=== PATIENT | male | born 1980 | race African-American/Black ===

== ENCOUNTER 2017-01-28 18:15 | Emergency (ER) | payer BC ==
[~2017-01-28] VITALS: Ht 177.8 cm; Wt 59.0 kg
[2017-01-28 18:51] VITALS: BP 96/64
[2017-01-28] MEDS ORDERED: NEOMY/BACITR/POLYMYXIN OINT PACKET. TP ONE (19:30)
[2017-01-28 19:52] LABS: POTASSIUM ISTAT 4.1 mmol/L (3.5-5.0)
--- NOTE | 2017-01-28 20:06 | PHYS DOC ---
Past Medical History Past Medical History: Arthritis, Sickle Cell Disease Past Surgical History: No Surgical History Alcohol Use: None Drug Use: None Adult General Chief Complaint Chief Complaint: KNEE INJURY HPI HPI Patient is a 36 year old male with history of sickle cell disease, Hep B and treated who presents today complaining of left knee pain. Patient states he was bending down when he got dizzy and fell on his left knee landing on a light bulb that broke. Patient denies any loss of consciousness. Denies hitting his head on the ground. Review of Systems Review of Systems Constitutional: Denies fever or chills [] Eyes: Denies change in visual acuity, redness, or eye pain [] HENT: Denies nasal congestion or sore throat [] Respiratory: Denies cough or shortness of breath [] Cardiovascular: No additional information not addressed in HPI [] GI: Denies abdominal pain, nausea, vomiting, bloody stools or diarrhea [] : Denies dysuria or hematuria [] Musculoskeletal: left knee pain Integument: Denies rash or skin lesions [] Neurologic: Dizziness. Denies headache, focal weakness or sensory changes [] Endocrine: Denies polyuria or polydipsia [] All other systems were reviewed and found to be within normal limits, except as documented in this note. Current Medications Current Medications Current Medications Medications (Trade) Dose Ordered Sig/Ira Start Time Stop Time Status Last Admin Dose Admin Neomycin/ Polymyxin/ Bacitracin (Triple Antibiotic Ointment) 1 pkt 1X ONCE 01/28/17 19:30 01/28/17 19:31 DC 01/28/17 19:30 1 PKT Allergies Allergies Allergies Coded Allergies Type Severity Reaction Last Updated Verified No Known Drug Allergies 03/08/13 No Physical Exam Physical Exam Constitutional: Well developed, well nourished, no acute distress, non-toxic appearance. [] HENT: Normocephalic, atraumatic, bilateral external ears normal, oropharynx moist, no oral exudates, nose normal. [] Eyes: PERRLA, EOMI, conjunctiva normal, no discharge. [] Neck: Normal range of motion, no tenderness, supple, no stridor. [] Cardiovascular:Heart rate regular rhythm, no murmur [] Lungs & Thorax: Bilateral breath sounds clear to auscultation [] Abdomen: Bowel sounds normal, soft, no tenderness, no masses, no pulsatile masses. [] Skin: Warm, dry, no erythema, no rash. [] Back: No tenderness, no CVA tenderness. [] Extremities: Left anterior knee with bruising. No obvious deformity. No tenderness. Full range of motion to the left knee including flexion and extension of the knee. Negative Kajal sign and negative Darya's sign. +2 left pedal pulse. Cap refill less than 2 seconds the left toes. Neurologic: Alert and oriented X 3, normal motor function, normal sensory function, no focal deficits noted. Cranial nerves II through XII intact. Psychologic: Affect normal, judgement normal, mood normal. [] Current Patient Data Vital Signs Vital Signs Date Time Temp Pulse Resp B/P (MAP) Pulse Ox O2 Delivery O2 Flow Rate FiO2 01/28/17 18:51 98.0 71 16 98 Room Air 98.0 Lab Values Laboratory Tests Test 01/28/17 19:39 POC Hemoglobin 13.3 g/dL (14-18) L POC Hematocrit 39 % (37-52) POC Sodium 138 mmol/L (135-145) POC Potassium 4.1 mmol/L (3.5-5.0) POC Chloride 103 mmol/L (98-110) POC Total CO2 24 mmol/L (23-32) Anion Gap 16 mmol/L (6-14) H POC Blood Urea Nitrogen 9 mg/dL (8-26) POC Creatinine 0.9 mg/dL (0.5-1.4) Glucose Level 96 mg/dL (70-99) POC Ionized Calcium (Katie) 1.09 mmol/L (1.13-1.32) L Laboratory Tests 01/28/17 19:39 EKG EKG [] Radiology/Procedures Radiology/Procedures [] Course & Med Decision Making Course & Med Decision Making Pertinent Labs and Imaging studies reviewed. (See chart for details) Patient is in the ED with left knee pain that began after he got dizzy and fell down. Chem 8 with no acute findings. Left knee x-rays interpreted by Dr. Chavira were negative for any acute findings but suspicious of a foreign object. Informed patient the foreign object to make its way out. Tetanus is up-to-date. Neosporin recommended to the area. Ice elevation encouraged. Follow-up with PCP in one week if pain continues or symptoms persist. Dragon Disclaimer Dragon Disclaimer This electronic medical record was generated, in whole or in part, using a voice recognition dictation system. Departure Departure Impression: Primary Impression: Left knee sprain Additional Impressions: Contusion of left knee Fall from standing Dizziness Disposition: 01 HOME, SELF-CARE Condition: STABLE Referrals: DARYL RAGLAND (PCP) follow up with your doctor in one week Patient Instructions: Contusion, Dizziness, [id number], Knee Sprain, Easy-to- Read Additional Instructions: You were seen for left knee pain after falling. Your lab work was negative for any acute findings. We encourage you to change positions very slowly. We encourage you to keep the affected knee clean and dry. There is a possibility you could have a foreign object/piece of light bulb in the knee. Most foreign objects will make their way out. Just monitor the area to make sure it does not get infected, signs of infection include increased redness to the area, yellow drainage from the area, increased warmth to the area if they occur, see your doctor right away. Problem Qualifiers Primary Impression: Left knee sprain Encounter type: initial encounter Involved ligament of knee: unspecified ligament Qualified Codes: S83.92XA - Sprain of unspecified site of left knee, initial encounter Additional Impressions: Contusion of left knee Encounter type: initial encounter Qualified Codes: S80.02XA - Contusion of left knee, initial encounter Fall from standing Encounter type: initial encounter Qualified Codes: W19.XXXA - Unspecified fall, initial encounter JEAN-CLAUDE GOMEZ APRN Jan 28, 2017 20:06
--- NOTE | 2017-01-29 08:26 | RAD ---
Left knee with patella, 4 views, 01/28/2017: History: Fall. No fracture or dislocation is identified. No significant joint effusion is seen. There is a tiny 1-2 mm radiopacity projected over the superficial soft tissues in the infrapatellar region on the lateral view. The appearance suggests a foreign body within the soft tissues or on the surface of the patient, of indeterminate age. Clinical correlation is suggested. IMPRESSION: 1. No acute bony abnormality is detected. 2. Tiny radiopaque foreign body projected over the soft tissues in the infrapatellar region.
== END 2017-01-28 20:10 | disposition home or self-care (01) ==
LOC: ER 18:15
DX: S83.92XA Sprain of unspecified site of left knee, initial encounter (principal); R42 Dizziness and giddiness; M19.90 Unspecified osteoarthritis, unspecified site; W19.XXXA Unspecified fall, initial encounter; Y93.89 Activity, other specified; Y99.8 Other external cause status; Y92.89 Other specified places as the place of occurrence of the external cause
CPT/HCPCS: 36415; 73564; 80047; 85014; 85018; 99284